=== PATIENT | female | born 1980 | race African-American/Black ===

== ENCOUNTER 2017-02-08 21:43 | Emergency (ER) | payer OTHER ==
[~2017-02-08] VITALS: Ht 154.9 cm; Wt 59.0 kg
[2017-02-08 21:45] VITALS: BP 111/73
== END 2017-02-09 01:10 | disposition left against medical advice (07) ==
LOC: ER 21:58
DX: R11.2 Nausea with vomiting, unspecified (principal); Z53.21 Procedure and treatment not carried out due to patient leaving prior to being seen by health care provider

== ENCOUNTER 2019-03-07 11:25 | Emergency (ER) | payer OTHER ==
[~2019-03-07] VITALS: Ht 162.6 cm; Wt 80.0 kg
[2019-03-07] MEDS ORDERED: ACETAMINOPHEN 325MG TABLET PO ONE (12:15)
[2019-03-07 15:58] VITALS: BP 100/56
== END 2019-03-07 16:00 | disposition home or self-care (01) ==
LOC: ER 11:37
DX: J10.1 Influenza due to other identified influenza virus with other respiratory manifestations (principal); R50.81 Fever presenting with conditions classified elsewhere
CPT/HCPCS: 87804; 99283